=== PATIENT | male | born 1990 | race Caucasian/White ===

== ENCOUNTER 2017-10-13 23:54 | Emergency (ER) | payer SELFPAY ==
[2017-10-14 00:04] VITALS: BP 134/80
--- NOTE | 2017-10-14 00:45 | ER Document Report ---
ED Medical Screen (RME) - General Chief Complaint: Knee Pain Stated Complaint: LEG INJURY Time Seen by Provider: 10/14/17 00:38 Mode of Arrival: Ambulatory Information source: Patient Notes: 27-year-old male presents to ED for complaint of left knee pain. He states he was picking up a trailer and somehow twisted his left knee inward and is now very painful and swollen. He states he is able to walk on it but is very painful. He states his friend made him come in and get checked out. Patient had a blue jeans and I was not able to examine the knee. I did order x-ray of the knee. I have greeted and performed a rapid initial assessment of this patient. A comprehensive ED assessment and evaluation of the patient, analysis of test results and completion of medical decision making process will be conducted by an additional ED providers. TRAVEL OUTSIDE OF THE [place] IN LAST 30 DAYS: No Physical Exam - Vital signs Vitals: Temp Pulse Resp BP Pulse Ox 97.6 F 79 18 134/80 H 100 10/13/17 23:55 10/13/17 23:55 10/13/17 23:55 10/13/17 23:55 10/13/17 23:55 Course - Vital Signs Vital signs: Temp Pulse Resp BP Pulse Ox 97.6 F 79 18 134/80 H 100 10/13/17 23:55 10/13/17 23:55 10/13/17 23:55 10/13/17 23:55 10/13/17 23:55
--- NOTE | 2017-10-14 01:35 | RADIOLOGY REPORT (SQ) ---
EXAM DESCRIPTION: XR KNEE 4 OR MORE VIEWS COMPLETED DATE/TME: 10/14/2017 00:38 CLINICAL HISTORY: 27 years, Male, pain injury swelling COMPARISON: None. FINDINGS: 4 views of the left knee. No acute fracture or dislocation. Normal osseous mineralization. Joint effusion. IMPRESSION: 1. No acute fracture or dislocation. 2. Moderate joint effusion. If there is concern for internal derangement MRI could provide additional characterization. 2011 [employer]- All Rights Reserved
[2017-10-14] MEDS ORDERED: IBUPROFEN 600 MG TABLET PO ONE (01:55)
--- NOTE | 2017-10-14 01:55 | ER Document Report ---
ED General - General Chief Complaint: Knee Pain Stated Complaint: LEG INJURY Time Seen by Provider: 10/14/17 00:38 Mode of Arrival: Ambulatory Notes: Patient is a 27-year-old male who presents with 24 hours of left knee pain. Patient states that this started after he attempted to lift a trailer, had not appropriately planted his left foot and pivoted his knee inward. He states that he felt an immediate, throbbing, severe pain that has been ongoing since that time. He states the pain is worsened by walking. He has not tried anything to improve the pain. He denies any history of similar injury in the past. No direct trauma to the area. He has not seen his general doctor regarding today's concerns. TRAVEL OUTSIDE OF THE [place] IN LAST 30 DAYS: No - Related Data Allergies/Adverse Reactions: No Known Allergies Allergy (Unverified 10/14/17 02:18) Past Medical History - General Information source: Patient - Social History Smoking Status: Never Smoker Frequency of alcohol use: Occasional Drug Abuse: None Family History: Reviewed & Not Pertinent Review of Systems - Review of Systems Notes: Constitutional: Negative for fever. Eyes: Negative for visual changes. ENT: Negative for facial injury Cardiovascular: Negative for chest injury. Respiratory: Negative for shortness of breath. Gastrointestinal: Negative for abdominal injury. Genitourinary: Negative for genital injury Musculoskeletal: Positive for left knee injury Skin: Negative for laceration/abrasions. Neurological: Negative for head injury. Physical Exam - Vital signs Vitals: Temp Pulse Resp BP Pulse Ox 97.6 F 79 18 134/80 H 100 10/13/17 23:55 10/13/17 23:55 10/13/17 23:55 10/13/17 23:55 10/13/17 23:55 Interpretation: Normal Notes: PHYSICAL EXAMINATION: GENERAL: Well-appearing, well-nourished and in no acute distress. HEAD: Atraumatic, normocephalic. EYES: sclera anicteric, conjunctiva are normal. ENT: Moist mucous membranes. NECK: Normal range of motion LUNGS: Normal work of breathing HEART: 2+ radial pulses bilaterally. 2+ DP pulses bilaterally EXTREMITIES: Moderate swelling of the left knee most dominantly along the medial aspect. Full flexion and extension are present in the bilateral knees. No anterior or posterior laxity on testing on the left knee. NEUROLOGICAL: No focal neurological deficits. Moves all extremities spontaneously and on command. PSYCH: Normal mood, normal affect. SKIN: Warm, Dry, normal turgor, no rashes or lesions noted. Course - Re-evaluation Re-evalutation: 10/14/17 01:55 No evidence of a septic joint, gout flare, dislocation, or fracture on exam and imaging. There is notable swelling to the medial aspect of the left knee joint and the clinical history is most consistent with a likely meniscal versus cruciate ligament injury. I have informed the patient of this high probability and of encouraged him to follow-up with orthopedic surgery if he is not having resolution of his pain and swelling within the next several weeks for consideration of an MRI. Vitals wnl. At this time, I do not see an indication for labs or further imaging. At this time will discharge with return precautions and follow-up recommendations. Verbal discharge instructions given a the bedside and opportunity for questions given. Medication warnings reviewed. Patient is in agreement with this plan and has verbalized understanding of return precautions and the need for primary care follow-up in the next 24-72 hours. - Vital Signs Vital signs: Temp Pulse Resp BP Pulse Ox 97.6 F 79 18 134/80 H 100 10/13/17 23:55 10/13/17 23:55 10/13/17 23:55 10/13/17 23:55 10/13/17 23:55 - Diagnostic Test Radiology reviewed: Image reviewed, Reports reviewed Radiology results interpreted by me: 10/14/17 01:56 Left knee x-ray: No acute fracture or dislocation, joint effusion Discharge - Discharge Clinical Impression: Left knee injury Qualifiers: Encounter type: initial encounter Qualified Code(s): S89.92XA - Unspecified injury of left lower leg, initial encounter Injury of ligament of left knee Qualifiers: Encounter type: initial encounter Qualified Code(s): S89.92XA - Unspecified injury of left lower leg, initial encounter Condition: Good Disposition: HOME, SELF-CARE Additional Instructions: Your x-ray does not show any acute fracture today. You likely have a ligamentous injury. You should continue to take anti-inflammatories such as ibuprofen 600 mg every 6 hours. Continue to apply ice to the area is much your able. Please follow-up with your primary care physician if you do not have improving your symptoms in the next 1-2 weeks. You may require an MRI of your knee to further clarify the exact ligament is injury that you have sustained. Please return immediately if you develop weakness, numbness, spreading redness from the area, or any other symptoms that are concerning to you. Referrals: YASSINE MONET MD [ACTIVE STAFF] - Follow up as needed
== END 2017-10-14 02:18 | disposition home or self-care (01) ==
LOC: ER 23:54
DX: S89.92XA Unspecified injury of left lower leg, initial encounter (principal); X50.0XXA Overexertion from strenuous movement or load, initial encounter
CPT/HCPCS: 99283